=== PATIENT | female | born 1990 | race Caucasian/White ===

== ENCOUNTER 2021-04-11 15:06 | Emergency (ER) | payer BC ==
[~2021-04-11] VITALS: Ht 168.9 cm; Wt 127.3 kg
[2021-04-11] MEDS ORDERED: ASPIRIN CHEWABLE 81 MG TABLET. ONE (15:17)
[2021-04-11] MEDS: ASPIRIN CHEWABLE 81 MG TABLET. PO ONE (15:23)
[2021-04-11 15:54] LABS: BASO # 0.1 x10^3/uL (0.0-0.2); BASO % 1 % (0-3); EOS # 0.2 x10^3/uL (0.0-0.7); EOS % 2 % (0-3); HEMATOCRIT 41.6 % (36.0-47.0); HEMOGLOBIN 14.2 g/dL (12.0-15.5); LYMPH # 3.1 x10^3/uL (1.0-4.8); LYMPH % 29 % (24-48); MEAN CORPUSCULAR HEMOGLOBIN 30 pg (25-35); MEAN CORPUSCULAR HGB CONC 34 g/dL (31-37); MEAN CORPUSCULAR VOLUME 87 fL (79-100); MONO # 0.9 x10^3/uL (0.0-1.1); MONO % 8 % (0-9); NEUT # 6.5 x10^3uL (1.8-7.7); NEUT % 61 % (31-73); PLATELET COUNT 319 x10^3/uL (140-400); RED BLOOD COUNT 4.77 x10^6/uL (3.50-5.40); RED CELL DISTRIBUTION WIDTH 15.1 % (11.5-14.5); WHITE BLOOD COUNT 10.6 x10^3/uL (4.0-11.0)
[2021-04-11 16:05] LABS: ANION GAP 10 (6-14); BLOOD UREA NITROGEN 16 mg/dL (7-20); BUN/CREATININE RATIO 18 (6-20); CARBON DIOXIDE 27 mmol/L (21-32); CHLORIDE 104 mmol/L (98-107); CREATININE 0.9 mg/dL (0.6-1.0); GLUCOSE 92 mg/dL (70-99); POTASSIUM 3.8 mmol/L (3.5-5.1); SODIUM 141 mmol/L (136-145)
[2021-04-11 16:08] LABS: PREG TEST PT QUAL NEGATIVE (NEG)
[2021-04-11 16:20] LABS: ALBUMIN 3.8 g/dL (3.4-5.0); ALBUMIN/GLOBULIN RATIO 0.9 (1.0-1.7); ALK PHOS 82 U/L (46-116); ALT (SGPT) 46 U/L (14-59); AST (SGOT) 29 U/L (15-37); LIPASE 100 U/L (73-393); MAGNESIUM 2.1 mg/dL (1.8-2.4); TOTAL BILIRUBIN 0.4 mg/dL (0.2-1.0)
[2021-04-11 16:21] LABS: CLARITY,URINE CLOUDY; COLOR,URINE YELLOW
--- NOTE | 2021-04-11 16:21 | RAD ---
Two-view chest dated 04/11/2021 4:18 PM Comparison: None CLINICAL INDICATION: Chest pain FINDINGS: PA and lateral views obtained. Heart and mediastinal contours within normal limits. Lungs are clear. No consolidation or pleural effusion. No pneumothorax. IMPRESSION: No acute radiographic abnormality. Electronically signed by: Xander Adames MD (04/11/2021 4:19 PM) [id number]
[2021-04-11 16:22] LABS: AMORPHOUS SEDIMENT,UR PRESENT /HPF; BACTERIA,URINE FEW /HPF (0-FEW); BILIRUBIN,URINE NEG (NEG); GLUCOSE,URINE NEG (NEG); NITRITE,URINE NEG (NEG); RBC,URINE 0 /HPF (0-2); SQUAMOUS EPITHELIAL CELL,UR FEW /LPF; UROBILINOGEN,URINE 0.2 mg/dL (0.2 mg/dL); WBC,URINE 0 /HPF (0-4)
[2021-04-11] MEDS ORDERED: IOHEXOL 350 MG/ML 100 ML VIAL. IV ONE (17:00)
--- NOTE | 2021-04-11 17:33 | RAD ---
CTA CHEST History: Chest pain Technique: CT of the chest was performed with intravenous contrast. PE protocol. Maximum intensity pr ojection coronal and sagittal reconstructions were performed. Exposure: One or more of the following individualized dose reduction techniques were utilized for thi s examination: 1. Automated exposure control 2. Adjustment of the mA and/or kV according to patient size 3. Use of iterative reconstruction technique. Comparison: None Findings: Chest: Degraded evaluation due to contrast bolus timing and respiratory motion. No central or segment al pulmonary embolus although evaluation for distal pulmonary emboli is degraded by the fact. No aort ic aneurysm or dissection. No pathologic lymphadenopathy. No consolidation or pleural effusion. No pneumothorax. 3 mm right lower lobe pulmonary nodule (series 4 image 54). Upper abdomen: The imaged upper abdomen is unremarkable. Bones: No pathologic osseous lesions. Impression: 1. No central or segmental pulmonary embolus although evaluation for distal pulmonary emboli is degr aded. If persistent clinical concern, recommend follow-up. 2. Small right lower lobe pulmonary nodule. Recommend one-year follow-up if high risk. Electronically signed by: Mati Perkins DO (04/11/2021 5:30 PM) [facility]
[2021-04-11 17:46] VITALS: BP 156/72
--- NOTE | 2021-04-11 17:53 | PHYS DOC ---
Past History Past Surgical History: Appendectomy, Cholecystectomy, Other Additional Past Surgical Histo: Bone spur left foot (XANDER COREY APRN) Alcohol Use: Occasionally (XANDER COREY APRN) Adult General Chief Complaint Chief Complaint: CHEST PAIN HPI HPI Patient is a 30-year-old female presents emergency department reporting she was eating lunch today when her apple watch pain to her and told her her heart rate was 120 bpm. Patient states she did not notice her heart was beating fast however under the recommendation of her mother was brought to the emergency depa rtment today. Patient states in route to the emergency department she developed left-sided chest pain that radiated down her left arm and up into her left jaw. Patient states she began to feel short of breath. Patient reports her chest pain initially a 7 out of 10 but upon arrival to the emergency department it reduced to a 4 out of 10. Patient denies nausea, vomiting, diarrhea, abdominal pains. Patient denies cough chest congestion or nasal congestion. Patient denies rashes of her skin. Patient denies any other physical complaints or physical concerns. Patient states she takes 100 mg sertraline for depression and anxiety, is allergic to Percocet, is visiting family here as she resides in [facility], reports she will return home this coming Tuesday or Tuesday, states she lives at home alone. Denies history of smoking cigarettes, states she drinks alcohol occasionally with friends, denies illicit drug use. Patient does report a history of snoring, however has not had a work-up for her snoring issues. (XANDER COREY APRN) Review of Systems Review of Systems 14 body systems of review of systems have been reviewed. See HPI for pertinent positives and negative responses, otherwise all other systems are negative, nonpertinent or noncontributory. (XANDER COREY APRN) Current Medications Current Medications Current Medications Medications (Trade) Dose Ordered Sig/Sanjana Start Time Stop Time Status Last Admin Dose Admin Aspirin (Aspirin Chewable) 324 mg 1X ONCE 04/11/21 15:30 04/11/21 15:33 DC 04/11/21 15:23 324 MG Iohexol (Omnipaque 350 Mg/ml) 100 ml 1X ONCE 04/11/21 17:00 04/11/21 17:02 DC (XANDER COREY APRN) Allergies Allergies Allergies Coded Allergies Type Severity Reaction Last Updated Verified acetaminophen Allergy Unknown 04/11/21 Yes oxycodone Allergy Unknown 04/11/21 Yes (XANDER COREY APRN) Physical Exam Physical Exam Constitutional: Well developed, well nourished, no acute distress, non-toxic appearance. 30-year-old female in no apparent distress. HENT: Normocephalic, atraumatic, bilateral external ears normal, oropharynx mois t, no oral exudates, nose normal. Eyes: PERRLA, EOMI, conjunctiva normal, no discharge. Neck: Normal range of motion, no tenderness, supple, no stridor. Cardiovascular:Heart rate regular rhythm, no murmur, heart sounds S1-S2 to auscultation. Lungs & Thorax: Bilateral breath sounds clear to auscultation all lung cuadra, no adventitious lung sounds appreciated, no pain elicited with palpation of the anterior thorax. Abdomen: Bowel sounds normal, soft, no tenderness, no masses, no pulsatile masses. Abdomen round, patient obese. Skin: Warm, dry, no erythema, no rash. Back: No tenderness, no CVA tenderness. Extremities: No tenderness, no cyanosis, no clubbing, ROM intact, no edema. Neurologic: Alert and oriented X 3, normal motor function, normal sensory function, no focal deficits noted. Psychologic: Affect normal, judgement normal, mood normal. (XANDER COREY APRN) Current Patient Data Vital Signs Vital Signs Date Time Temp Pulse Resp B/P (MAP) Pulse Ox O2 Delivery O2 Flow Rate FiO2 04/11/21 15:42 95 18 163/75 (104) 96 Room Air 04/11/21 15:10 98.4 Lab Results Laboratory Tests Test 04/11/21 15:26 04/11/21 15:57 04/11/21 16:06 White Blood Count 10.6 x10^3/uL (4.0-11.0) Red Blood Count 4.77 x10^6/uL (3.50-5.40) Hemoglobin 14.2 g/dL (12.0-15.5) Hematocrit 41.6 % (36.0-47.0) Mean Corpuscular Volume 87 fL (79-100) Mean Corpuscular Hemoglobin 30 pg (25-35) Mean Corpuscular Hemoglobin Concent 34 g/dL (31-37) Red Cell Distribution Width 15.1 % (11.5-14.5) H Platelet Count 319 x10^3/uL (140-400) Neutrophils (%) (Auto) 61 % (31-73) Lymphocytes (%) (Auto) 29 % (24-48) Monocytes (%) (Auto) 8 % (0-9) Eosinophils (%) (Auto) 2 % (0-3) Basophils (%) (Auto) 1 % (0-3) Neutrophils # (Auto) 6.5 x10^3uL (1.8-7.7) Lymphocytes # (Auto) 3.1 x10^3/uL (1.0-4.8) Monocytes # (Auto) 0.9 x10^3/uL (0.0-1.1) Eosinophils # (Auto) 0.2 x10^3/uL (0.0-0.7) Basophils # (Auto) 0.1 x10^3/uL (0.0-0.2) Prothrombin Time 9.9 SEC (9.4-11.4) Prothrombin Time INR 1.0 (0.9-1.1) Activated Partial Thromboplast Time 27 SEC (23-33) D-Dimer (Celina) 0.58 mg/L (0.00-0.50) H Sodium Level 141 mmol/L (136-145) Potassium Level 3.8 mmol/L (3.5-5.1) Chloride Level 104 mmol/L (98-107) Carbon Dioxide Level 27 mmol/L (21-32) Anion Gap 10 (6-14) Blood Urea Nitrogen 16 mg/dL (7-20) Creatinine 0.9 mg/dL (0.6-1.0) Estimated GFR (Cockcroft-Gault) 73.0 BUN/Creatinine Ratio 18 (6-20) Glucose Level 92 mg/dL (70-99) Calcium Level 9.0 mg/dL (8.5-10.1) Magnesium Level 2.1 mg/dL (1.8-2.4) Total Bilirubin 0.4 mg/dL (0.2-1.0) Aspartate Amino Transferase (AST) 29 U/L (15-37) Alanine Aminotransferase (ALT) 46 U/L (14-59) Alkaline Phosphatase 82 U/L (46-116) Creatine Kinase 50 U/L (26-192) Creatine Kinase MB (Mass) < 0.5 ng/mL (0.0-3.6) Creatine Kinase MB Relative Index 1.0 % (0-4) Troponin I Quantitative < 0.017 ng/mL (0-0.055) BJ-Hxf-G-Type Natriuretic Peptide 27 pg/mL (0-124) Total Protein 8.0 g/dL (6.4-8.2) Albumin 3.8 g/dL (3.4-5.0) Albumin/Globulin Ratio 0.9 (1.0-1.7) L Lipase 100 U/L (73-393) Serum Test, Qualitative Negative (NEG) Urine Collection Type Unknown Urine Color Yellow Urine Clarity Cloudy Urine pH 6.0 Urine Specific [place] >=1.030 Urine Protein Neg (NEG-TRACE) Urine Glucose (UA) Neg mg/dL (NEG) Urine Ketones (Stick) Trace mg/dL (NEG) Urine Blood Neg (NEG) Urine Nitrite Neg (NEG) Urine Bilirubin Neg (NEG) Urine Urobilinogen Dipstick 0.2 mg/dL (0.2 mg/dL) Urine Leukocyte Esterase Neg (NEG) Urine RBC 0 /HPF (0-2) Urine WBC 0 /HPF (0-4) Urine Squamous Epithelial Cells Few /LPF Urine Amorphous Sediment Present /HPF Urine Bacteria Few /HPF (0-FEW) Urine Mucus Slight /LPF POC Urine HCG, Qualitative hcg negative (Negative) (XANDER COREY POST OFFICE MARKUP CLERK) EKG EKG EKG performed at 1511 by ED nursing staff shows a sinus tachycardia without other ectopy VT interval 0.162, QTc interval 0.419, no acute STEMI, no ACS, no acute ischemia appreciated, EKG interpreted by ED attending physician Dr. Guerra. A second EKG performed 30 minutes after at 1547 shows a normal sinus rhythm without other ectopy, EKG computer did indicate a rightward axis, VT interval 0.170, QTc interval 0.416, no acute STEMI, no acute ACS, no acute ischemia appreciated, EKG interpreted by ED attending physician Dr. Guerra. (XANDER COREY APRN) Radiology/Procedures Radiology/Procedures PATIENT: VIANCA HANKS ACCOUNT: [id number] : 1990 LOCATION: ER AGE: 30 SEX: F EXAM STATUS: REG ER ORD. PHYSICIAN: XANDER COREY APRN REASON: chest pain with elevated d-dimer, PE study PROCEDURE: CT ANGIOGRAPHY CHEST CTA CHEST History: Chest pain Technique: CT of the chest was performed with intravenous contrast. PE protocol. Maximum intensity projection coronal and sagittal reconstructions were performed. Exposure: One or more of the following individualized dose reduction techniques were utilized for this examination: 1. Automated exposure control 2. Adjustment of the mA and/or kV according to patient size 3. Use of iterative reconstruction technique. Comparison: None Findings: Chest: Degraded evaluation due to contrast bolus timing and respiratory motion. No central or segmental pulmonary embolus although evaluation for distal pulmonary emboli is degraded by the fact. No aortic aneurysm or dissection. No pathologic lymphadenopathy. No consolidation or pleural effusion. No pneumothorax. 3 mm right lower lobe pulmonary nodule (series 4 image 54). Upper abdomen: The imaged upper abdomen is unremarkable. Bones: No pathologic osseous lesions. Impression: 1. No central or segmental pulmonary embolus although evaluation for distal pulmonary emboli is degraded. If persistent clinical concern, recommend follow- up. 2. Small right lower lobe pulmonary nodule. Recommend one-year follow-up if high risk. Electronically signed by: Mati Perkins DO (04/11/2021 5:30 PM) [facility] DICTATED AND SIGNED BY: AMTI PERKINS DO DATE: 04/11/211724 CC: XANDER COREY APRN; PCP,NO ~MTH0 0PATIENT: VIANCA HANKS AACCOUNT: [id number]#: [id number] : 1990 LOCATION: ER AGE: 30 SEX: F EXAM STATUS: REG ER ORD. PHYSICIAN: XANDER COREY APRN REASON: Chest pain PROCEDURE: CHEST PA & LATERAL Two-view chest dated 04/11/2021 4:18 PM Comparison: None CLINICAL INDICATION: Chest pain FINDINGS: PA and lateral views obtained. Heart and mediastinal contours within normal limits. Lungs are clear. No consolidation or pleural effusion. No pneumothorax. IMPRESSION: No acute radiographic abnormality. Electronically signed by: Xander Epps MD (04/11/2021 4:19 PM) [id number] DICTATED AND SIGNED BY: XANDER EPPS MD DATE: 04/11/21 1618 CC: XANDER COREY APRN; PCP,NO ~MTH0 0 (XANDER COREY APRN) Heart Score C/O Chest Pain: Yes HEART Score for Chest Pain: HEART Score for Chest Pain Response (Comments) Value History Slighlty/Non-Suspicious 0 ECG Normal 0 Age < 45 0 Risk Factors 1 or 2 Risk Factors 1 Troponin < Normal Limit 0 Total 1 Risk Factors: Risk Factors: DM, Current or recent (<one month) smoker, HTN, HLP, family history of CAD, obesity. Risk Scores: Risk Factors: DM, Current or recent (<one month) smoker, HTN, HLP, family history of CAD, obesity. (XANDER COREY APRN) Course & Med Decision Making Course & Med Decision Making Pertinent Labs and Imaging studies reviewed. (See chart for details) 30-year-old female, vital signs reviewed, presents emergency department chief complaint of Apple Watch telling her of a rapid heart rate. Patient then developed chest pain with shortness of breath in route to the emergency department. Physical examination unremarkable however with patient's reported complaints, will order a cardiopulmonary work-up. Patient's lab work unremarkable except for slightly elevated D-dimer 0.58, will order CT angio chest to rule out pulmonary emboli. The patient's heart score equals 1, CT angio chest was nonconcerning for pulmonary embolus, however did find incidental finding of 3 mm nodule right lobe. Recommendation of follow-up CT in 1 year. Discussed findings with patient, upon reevaluation of the patient, the patient states she is pain-free and symptom-free. Discussed diagnosis of chest pain of unknown etiology, recommended strict follow-up with primary care physician for snoring problems at home, discussed with patient suspicious of obstructive sleep apnea, patient gave verbal understanding of DC instructions and stated she will see her doctor soon as she returns home this Tuesday or Tuesday, patient gave verbal understanding of strict return to ER precautions and concerns, patient states she feels fine now and is ready to go home, patient was discharged home without incident. (XANDER COREY APRN) Course & Med Decision Making I oversaw on the above date of service of this patient. This patient was evaluated, examined, treated, and dispositioned from the emergency department by the mid-level practitioner. I reviewed note and agree to findings, plan of care, and disposition as stated. Electronically signed, Nguyễn Guerra DO (NGUYỄN GUERRA DO) Shola Disclaimer Shola Disclaimer This electronic medical record was generated, in whole or in part, using a voice recognition dictation system. (XANDER COREY APRN) Departure Departure: Impression: Primary Impression: Chest pain of unknown etiology Additional Impressions: Rapid heart rate Abnormal CT scan, lung Disposition: HOME / SELF CARE / HOMELESS Condition: GOOD Referrals: PCP,NO (PCP) Patient Instructions: Chest Pain (Nonspecific) Additional Instructions: You were seen for chest pain today in the emergency department. Your testing did not show any acute abnormality today, but does not indicate that you do not have an underlying cardiovascular disease. You have indicated that you have problems snoring while sleeping and you wake up feeling short of breath. These are signs of obstructive sleep apnea as we have discussed, please follow-up with your primary care physician when you return home to [place] this Tuesday or Tuesday to let them know of these problems as they may consider performing a sleep study to evaluate your snoring difficulties. At this time there were no findings that would suggest hospitalization or immediate intervention by a cardiology or patient services specialist. You should return to the emergency departm ent if you develop worsening chest pains, shortness of breath, fevers, abnormal sweating, leg swelling, or any new or concerning symptoms. As we discussed, there was an abnormal finding of your CT chest, please follow-up with your primary care physician to discuss these findings. It was a pleasure taking care of you today and I thank you very much for allowing me to participate in your emergency healthcare needs. EMERGENCY DEPARTMENT GENERAL DISCHARGE INSTRUCTIONS Thank you for coming to [facility] (ED) today and trusting us with you care. We trust that you had a positivie experience in our Emergency Department. If you wish to speak to the department management, you may call the director at [phone]. YOUR FOLLOW UP INSTRUCTIONS ARE FOLLOWS: 1. Do you have a private Doctor? If you do not have a private doctor, please ask for a resource list of physicians or clinics that may be able to assist you with follow up care. 2. The Emergency Physician has interpreted your x-rays. The X-Ray specialist will also review them. If there is a change in the findings, you will be notified in 48 hours when at all possible. 3. A lab test or culture has been done, your results will be reviewed and you will be notified if you need a change in treatment. ADDITIONAL INSTRUCTIONS AND INFORMATION: 1. Your care today has been supervised by a physician who is specially trained in emergency care. Many problems require more than one evaluation for a complete diagnosis and treatment. We recommend that you schedule your follow up appointment as recommended to ensure complete treatment of you illness or injury. If you are unable to obtain follow up care and continue to have a problem, or if your condition worsens, we recommend that you return to the ED. 2. We are not able to safely determine your condition over the phone nor are we able to give sound medical advice over the phone. For these safety reasons, if you call for medical advice we will ask you to come to the ED for further evaluation. 3. If you have any questions regarding these discharge instructions please call the ED at [phone]. SAFETY INFORMATION: In the interest of safety, wellness, and injury prevention; we encourage you to wear your sealbelt, if you smoke; quite smoking, and we encourage family to use a protective helmet for bicycling and other sporting events that present an increased risk for head injury. IF YOUR SYMPTOMS WORSEN OR NEW SYMPTOMS DEVELOP, OR YOU HAVE CONCERNS ABOUT YOUR CONDITION; OR IF YOUR CONDITION WORSENS WHILE YOU ARE WAITING FOR YOUR FOLLOW UP APPOINTMENT; EITHER CONTACT YOUR PRIMARY CARE DOCTOR, THE PHYSICIAN WHOSE NAME AND NUMBER YOU WERE GIVEN, OR RETURN TO THE ED IMMEDIATELY. Problem Qualifiers XANDER COREY APRN Apr 11, 2021 17:53 NGUYỄN GUERRA DO Apr 14, 2021 09:06
--- NOTE | 2021-04-11 23:21 | EKG ---
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
--- NOTE | 2021-04-11 23:23 | EKG ---
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
== END 2021-04-11 18:00 | disposition home or self-care (01) ==
LOC: ER 15:06
DX: R07.89 Other chest pain (principal); R94.2 Abnormal results of pulmonary function studies; R00.0 Tachycardia, unspecified
CPT/HCPCS: 36415; 71046; 71275; 80053; 81001; 81025; 82553; 83690; 83735; 83880; 84484; 84703; 85025; 85379; 85610; 85730; 93005; 99285-25